=== PATIENT | male | born 1985 | race Caucasian/White ===

== ENCOUNTER 2020-03-23 23:48 | Emergency (ER) | payer OTHER ==
[~2020-03-23] VITALS: Ht 180.3 cm; Wt 72.6 kg
[2020-03-23 23:56] VITALS: BP 132/64
--- NOTE | 2020-03-24 00:44 | NUR ---
Patient discharged to home in stable condition. Written and verbal after care instructions given. Patient verbalizes understanding of instruction.
== END 2020-03-24 00:45 | disposition home or self-care (01) ==
LOC: ER 23:48
DX: L03.011 Cellulitis of right finger (principal)
CPT/HCPCS: 73140-TC

== ENCOUNTER 2020-04-02 20:06 | Emergency (ER) | payer OTHER ==
[~2020-04-02] VITALS: Ht 167.6 cm; Wt 65.8 kg
[2020-04-02 20:28] VITALS: BP 145/60
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
[2020-04-02] MEDS ORDERED: SODIUM BICARBONATE 5 ML VIAL MC ONE (23:30)
[2020-04-02] MEDS ORDERED: TDAP [DIPH/PERTUSSIS/TET] 0.5 ML VIAL IM ONE (23:30)
[2020-04-02] MEDS ORDERED: CEFTRIAXONE 1 G VIAL IM ONE (23:30)
[2020-04-02] MEDS ORDERED: LIDOCAINE 1%-EPI 1:100,000 20 ML VIAL TP ONE (23:30)
[2020-04-02] MEDS ORDERED: SODIUM BICARBONATE 5 ML VIAL ONE (23:32)
[2020-04-02] MEDS ORDERED: LIDOCAINE 2%-EPI 1:100,000 30 ML VIAL ONE (23:32)
[2020-04-03] MEDS ORDERED: HYDROCODONE/APAP 10/325MG TABLET PO ONE
[2020-04-03] MEDS ORDERED: ONDANSETRON 4 MG TAB.RAPDIS SL ONE
[2020-04-03] MEDS ORDERED: CEFTRIAXONE 1 G VIAL ONE (00:29)
[2020-04-03] MEDS ORDERED: HYDROCODONE/APAP 10/325MG TABLET ONE (00:29)
[2020-04-03] MEDS ORDERED: LIDOCAINE /MPF 1% VIAL 5 ML VIAL ONE (00:30)
[2020-04-03] MEDS ORDERED: TDAP [DIPH/PERTUSSIS/TET] 0.5 ML VIAL IM ONE (00:30)
[2020-04-03] MEDS ORDERED: ONDANSETRON 4 MG TAB.RAPDIS ONE (00:30)
--- NOTE | 2020-04-03 00:45 | NUR ---
PT DID NOT WANT TO HAVE HIS VITAL SIGNS TAKEN FOR DISCHARGE
== END 2020-04-03 00:46 | disposition home or self-care (01) ==
LOC: ER 20:08
DX: S01.01XA Laceration without foreign body of scalp, initial encounter (principal); S01.511A Laceration without foreign body of lip, initial encounter; S05.12XA Contusion of eyeball and orbital tissues, left eye, initial encounter; S09.8XXA Other specified injuries of head, initial encounter; R51.9 Headache, unspecified; Y08.89XA Assault by other specified means, initial encounter; Y93.89 Activity, other specified; Y92.89 Other specified places as the place of occurrence of the external cause; Y99.8 Other external cause status
CPT/HCPCS: 12002; 12011; 70450; 96372; 99284; A6403 ×2; J0696; J3490 ×3; Q0162; 90715